=== PATIENT | male | born 2000 | race Caucasian/White ===

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

== ENCOUNTER 2019-02-18 23:25 | Emergency (ER) | payer BC ==
[~2019-02-18] VITALS: Ht 177.8 cm; Wt 113.4 kg
--- OUTSIDE RECORDS SUMMARY | ~2019-02-18 | XMS | Encounter Summary ---
Demographics + + + | Address | [address] | | | [place] [address] | + + + | Home Phone | | + + + | Preferred Language | Unknown | + + + | Marital Status | Single | + + + | Advent Affiliation | 1013 | + + + | Race | Unknown | + + + | Ethnic Group | Unknown | + + + Author + + + | Author | [facility] | | | and [place] | + + + | Organization | [facility] | | | and [place] | + + + | Address | Unknown | + + + | Phone | Unavailable | + + + Support + + +---------+ + | Name | Relationship | Address | Phone | + + +---------+ + | April De Dios | ECON | Unknown | | + + +---------+ + Care Team Providers + +------+ + | Care Credit Card Specialist Name | Role | Phone | + +------+ + PCP | Unavailable | + +------+ + Reason for Visit + + + | Reason | Comments | + + + | New Patient | Consultation for right hip | + + + Encounter Details +--------+---------+ + + + | Date | Type | Department | Care Team | Description | +--------+---------+ + + + | 01/21/ | Office | [facility] | Remi Vaughn, | Tear of right | | 2018 | Visit | [facility] | [address] | acetabular labrum, | | | | [address] | [address] | initial encounter | | | | [address] [place], [place] | [place] | (Primary Dx) | | | | [address] | [address] | | | | | [phone] | | | | | | | | +--------+---------+ + + + Social History + +-------+ +--------+------+ | Tobacco Use | Types | Packs/Day | Years | Date | | | | | Used | | + +-------+ +--------+------+ | Never Assessed | | | | | + +-------+ +--------+------+ + + +---------+ + | Alcohol Use | Drinks/Week | oz/Week | Comments | + + +---------+ + | No | | | | + + +---------+ + + + + | Sex Assigned at | Date Recorded | | | | + + + | Not on file | | + + + + + + + | Job Start Date | Occupation | Industry | + + + + | Not on file | Not on file | Not on file | + + + + + + + + | Travel History | Travel Start | Travel End | + + + + + + | No recent travel history available. | + + documented as of this encounter Last Filed Vital Signs + + + + + | Vital Sign | Reading | Time Taken | Comments | + + + + + | Blood Pressure | 142/88 | 01/21/2018 1:09 PM | | | | | PST | | + + + + + | Pulse | 79 | 01/21/2018 1:09 PM | | | | | PST | | + + + + + | Temperature | - | - | | + + + + + | Respiratory Rate | - | - | | + + + + + | Oxygen Saturation | - | - | | + + + + + | Inhaled Oxygen | - | - | | | Concentration | | | | + + + + + | Weight | 102.1 kg (225 lb) | 01/21/2018 1:09 PM | | | | | PST | | + + + + + | Height | 182.9 cm (6') | 01/21/2018 1:09 PM | | | | | PST | | + + + + + | Body Mass Index | 30.52 | 01/21/2018 1:09 PM | | | | | PST | | + + + + + documented in this encounter Progress Notes Remi Vaughn MD - 01/21/2018 1:15 PM PSTFormatting of this note might be different fro m the original. PATIENT NAME: Shawn De Dios : 2000 No care retail sales teammate to display SUBJECTIVE: Chief Complaint Patient presents with New Patient Consultation for right hip HPI: 17-year-old male seen for right hip injury. Occurred 2 months ago. [place] baseball game. [place] something jam or pop. Describes almost hyperextension of the hip. Had immediate numbness tingling spasm. Difficulty walking initially. With time this improved. However is having continued popping catching of the hip with certain activit ies. He shows me hyperflexion of the hip and rotation maneuvers. Pain is localized he poin ts anterior as well as lateral. No radicular pain no new numbness. No history of prior pro blems. No back issues. No bowel or bladder issues reported. There is no problem list on file for this patient. No past medical history on file. 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 No current facility-administered medications for this visit. ROS: Ortho Exam BP 142/88 | Pulse 79 | Ht 1.829 m (6') | Wt (!) 102.1 kg (225 lb) | BMI 30.52 kg/m In the standing position, no genu varum or valgum. No pes planus or cavus. Normal gait . Negative Trendelenburg. Able to create a pop or catch with external rotation abduction. Figure 4 as well. No pain with resisted hip flexion. Resisted abduction and and adduction normal. Leg length symmetric. No knee findings. Negative straight leg raise. Strength intact. XRAY STUDIES: 2 view right hip with normal bowel contour no evidence dysplasia. However on the lateral has a small bump. Nothing seen on acetabulum. No other findings seen. OUTSIDE STUDIES if relevant: ASSESSMENT: ICD-10-CM ICD-9-CM 1. Tear of right acetabular labrum, initial encounter S73.191A 843.8 PLAN: Concern for right hip labral tear. Given chronicity of his symptoms and failure of conse rvative therapy recommendation for contrast MRI to rule out labral tear. Other differential include snapping hip such as iliopsoas cyst tendinitis/bursitis. Active modification tempo rarily and recheck on MRIs done Requested Prescriptions No prescriptions requested or ordered in this encounter Electronically Signed: Remi Vaughn MD CC: No primary care provider on file. No referring provider defined for this encounter. Josselin Smith, CC [facility] - 01/21/2018 1:15 PM PSTSubjective Review of Systems Constitutional: Negative for chills, diaphoresis, fever, malaise/fatigue and weight loss. HENT: Positive for tinnitus. Negative for congestion, ear discharge, ear pain, hearing loss , nosebleeds, sinus pain and sore throat. Eyes: Positive for blurred vision and pain. Negative for double vision, photophobia, discha rge and redness. Respiratory: Positive for cough. Negative for hemoptysis, sputum production, shortness of b reath, wheezing and stridor. Cardiovascular: Positive for chest pain. Negative for palpitations, orthopnea, claudication , leg swelling and PND. Gastrointestinal: Positive for abdominal pain, diarrhea and vomiting. Negative for blood in stool, constipation, heartburn, melena and nausea. Genitourinary: Negative for dysuria, flank pain, frequency, hematuria and urgency. Musculoskeletal: Positive for back pain and joint pain. Negative for falls, myalgias and ne ck pain. Skin: Negative for itching and rash. Neurological: Positive for dizziness and headaches. Negative for tingling, tremors, sensory change, speech change, focal weakness, seizures, loss of consciousness and weakness. Endo/Heme/Allergies: Positive for environmental allergies. Negative for polydipsia. Does no t bruise/bleed easily. Psychiatric/Behavioral: Negative for depression, hallucinations, memory loss, substance abu se and suicidal ideas. The patient is nervous/anxious. The patient does not have insomnia. documented in t his encounter Plan of Treatment + +---------+--------+ + + | Name | Type | Priori | Associated Diagnoses | Order Schedule | | | | ty | | | + +---------+--------+ + + | XR Hip Left 2-3 | Imaging | Routin | Tear of right | Ordered: 01/21/2018 | | Views | | e | acetabular labrum, | | | | | | initial encounter | | + +---------+--------+ + + documented as of this encounter Visit Diagnoses + + | Diagnosis | + + | Tear of right acetabular labrum, initial encounter - Primary | + + documented in this encounter"
--- OUTSIDE RECORDS SUMMARY | ~2019-02-18 | XMS | Encounter Summary ---
Demographics + + + | Address | [address] | | | [place] [address] | + + + | Home Phone | | + + + | Preferred Language | Unknown | + + + | Marital Status | Single | + + + | Restoration Affiliation | 1013 | + + + | Race | Unknown | + + + | Ethnic Group | Unknown | + + + Author + + + | Author | [facility] | | | and [place] | + + + | Organization | [facility] | | | and [...] Team Providers + +------+ + | Care Inventory Taker Name | Role | Phone | + +------+ + PCP | Unavailable | + +------+ + Reason for Visit + + + | Reason | Comments | + + + | Request For Medical | | | Records | | + + + Encounter Details +--------+ + + + + | Date | Type | Department | Care Team | Description | +--------+ + + + + | 04/21/ | Telephone | [facility] | Remi Vaughn, | Request For Medical | | 2019 | | [facility] | [address] | Records | | | | [address] | [address] | | | | | [address] [place], [place] | [place], [place] | | | | | [address] | [address] | | | | | [phone] | | | | | | | | +--------+ + + + + Social History + +-------+ +--------+------+ | Tobacco Use | Types | Packs/Day | Years | Date | | | | | Used | | + +-------+ +--------+------+ | Never Smoker | | | | | + +-------+ +--------+------+ + +---+---+---+ | Smokeless Tobacco: | | | | | Never Used | | | | + +---+---+---+ + + +---------+ + | Alcohol Use [...] + + documented as of this encounter Plan of Treatment Not on filedocumented as of this encounter Visit Diagnoses Not on filedocumented in this encounter"
--- OUTSIDE RECORDS SUMMARY | ~2019-02-18 | XMS | Encounter Summary ---
Demographics + + + | Address | [address] | | | [place] [address] | + + + | Home Phone | | + + + | Preferred Language | Unknown | + + + | Marital Status | Single | + + + | Alevism Affiliation | 1013 | + + + | Race | Unknown | + + + | Ethnic Group | Unknown | + + + Author + + + | Author | [facility] | | | and [place] | + + + | Organization | [facility] | | [...] Team Providers + +------+ + | Care Rock Cutter Name | Role | Phone | + +------+ + | Daniel Owusu MD | PCP | Unavailable | + +------+ + Encounter Details +--------+ + + + + | Date | Type | Department | Care Team | Description | +--------+ + + + + | 10/11/ | Hospital [facility]leg[facility] | | | 2000 | Encounter | [facility] | MD Arleen [address] | | | | | [address] | | | | | [place] | [place] [address] | | | | | [address] | [phone] | | | | | [phone] | | | | | | | Physician, Er | | +--------+ + + + + Social History + +-------+ +--------+------+ | Tobacco Use | Types | Packs/Day | Years | Date | | | | | Used | | + +-------+ +--------+------+ | Never Assessed | | | | | + +-------+ +--------+------+ + + + | Sex Assigned at [...]
--- OUTSIDE RECORDS SUMMARY | ~2019-02-18 | XMS | Encounter Summary ---
Demographics + + + | Address | [address] | | | [place] [address] | + + + | Home Phone | | + + + | Preferred Language | Unknown | + + + | Marital Status | Single | + + + | Christian Affiliation | 1013 | + + + | Race | Unknown | + + + | Ethnic Group | Unknown | + + + Author + + + | Author | [facility] | | | and [place] | + + + | Organization | [facility] | | | and [...] Team Providers + +------+ + | Care Circular Sawyer Helper Name | Role | Phone | + [...] | | 2018 | Visit | [facility] | [address] | acetabular labrum, | | | | [address] | [address] | initial encounter | | | | [address] [place], [place] | [place] | (Primary Dx) | | | | [address] | [address] | | | | | [phone] | | | | | | | [...] Shawn De Dios : 2000 No care count team member to display SUBJECTIVE: Chief Complaint Patient presents with New Patient Consultation for right hip HPI: 17-year-old male seen for right hip injury. Occurred 2 months ago. [place] during baseball game. [place] something jam or pop. 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 Josselin Smith, CC [facility] - 01/21/2018 1:15 PM PSTSubjective Review [...]
--- OUTSIDE RECORDS SUMMARY | ~2019-02-18 | XMS | Clinical Summary ---
Demographics + + + | Address | [address] | | | [place] [address] | + + + | Home Phone | | + + + | Preferred Language | Unknown | + + + | Marital Status | Single | + + + | Faith Affiliation | 1013 | + + + | Race | Unknown | + + + | Ethnic Group | Unknown | + + + Author + + + | Author | [facility] | | | and [place] | + + + | Organization | [facility] | | | and [...] Team Providers + +------+ + | Care Locomotive Oiler Name | Role | Phone | + +------+ + PCP | Unavailable | + +------+ + Allergies No Known Allergies Medications No known medications Active Problems + + + | Problem | Noted Date | + + + | Hip impingement syndrome, right | 02/16/2018 | + + + Family History + + +------+ + | Medical History | Relation | Name | Comments | + + +------+ + | Alcohol abuse | Father | | | + + +------+ + | Hypertension | Father | | | + + +------+ + | Sleep apnea | Father | | | + + +------+ + + +------+--------+ + | Relation | Name | Status | Comments | + +------+--------+ + | Father | | | | + +------+--------+ + Social History + +-------+ +--------+------+ | [...] recent travel history available. | + + Last Filed Vital Signs + + + [...] Weight | 102.1 kg (225 lb) | 02/13/2018 1:56 PM | | | | | PST | | + + + + + | Height | 182.9 cm (6') | 02/13/2018 1:56 PM | | | | | PST | | + + + + + | Body Mass Index | 30.52 | 02/13/2018 1:56 PM | | | | | PST | | + + + + + Plan of Treatment + + + + + | Health Maintenance | Due Date | Last Done | Comments | + + + + + | Well Child Check | | | | | | 3 | | | + + + + + | Vaccine: Influenza | | 11/24/2013 | | | (#1) | 9 | | | + + + + + | Vaccine: | | 09/26/2010, 08/28/2004, | | | Dtap/Tdap/Td (7 - | 1 | 12/02/2000, Additional history | | | Td) | | exists | | + + + + + | Vaccine: HPV | Completed | 03/31/2014, 11/24/2013, | | | | | 08/25/2013 | | + + + + + Results Not on filefrom Last 3 Months Advance Directives + + + + + | Type | Date Recorded | Patient | Explanation | | | | Insulation And Flooring Assembler | | + + + + + | Power of | | | | | Sap Pi Developer | | | | + + + + + | Advance | | | | | Directive | | | | + + + + +"
--- OUTSIDE RECORDS SUMMARY | ~2019-02-18 | XMS | Encounter Summary ---
Demographics + + + | Address | [address] | | | [place] [address] | + + + | Home Phone | | + + + | Preferred Language | Unknown | + + + | Marital Status | Single | + + + | Worship Affiliation | 1013 | + + + | Race | Unknown | + + + | Ethnic Group | Unknown | + + + Author + + + | Author | [facility] | | | and [place] | + + + | Organization | [facility] | | | [...] Team Providers + +------+ + | Care Music Professor Name | Role | Phone | + +------+ + PCP | Unavailable | + +------+ + Encounter Details +--------+ + + + + | Date | Type | Department | Care Team | Description | +--------+ + + + + | 07/15/ | Hospital [facility] | To Hemphill MD | | | 2000 | Encounter | [facility] | | | | | | GENERIC [address] | | | | | | [place], | | | | | | [place] [address] | | | | | | [phone] | | | +--------+ + + + [...]
--- OUTSIDE RECORDS SUMMARY | ~2019-02-18 | XMS | Encounter Summary ---
Demographics + + + | Address | [address] | | | [place] [address] | + + + | Home Phone | | + + + | Preferred Language | Unknown | + + + | Marital Status | Single | + + + | Sabianist Affiliation | 1013 | + + + | Race | Unknown | + + + | Ethnic Group | Unknown | + + + Author + + + | Author | [facility] | | | and [place] | + + + | Organization | [facility] | | | and [...] Team Providers + +------+ + | Care Shipper/Receiver Name | Role | Phone | + +------+ + PCP | Unavailable | + +------+ + Reason for Visit +--------+ + | Reason | Comments | +--------+ + | Letter | | +--------+ + Encounter Details +--------+ + + + + | Date | Type | Department | Care Team | Description | +--------+ + + + + | 02/23/ | Telephone | [facility] | Remi Vaughn, | Letter | | 2019 | | [facility] | [address] | | | | | [place] [address] | [address] | | | | | [address] | [place] | | | | | [address] [place], [place] | [address] | | | | | [address] | [phone] | | | | | [phone] | | | +--------+ + + + [...]
--- OUTSIDE RECORDS SUMMARY | ~2019-02-18 | XMS | Clinical Summary ---
Demographics + + + | Address | [address] | | | [place] [address] | + + + | Home Phone | | + + + | Preferred Language | Unknown | + + + | Marital Status | Single | + + + | Nondenominational Affiliation | 1013 | + + + | Race | Unknown | + + + | Ethnic Group | Unknown | + + + Author + + + | Author | [facility] | | | and [place] | + + + | Organization | [facility] | | | [...] Team Providers + +------+ + | Care Station Captain Name | Role | Phone | + [...] Patient | Explanation | | | | Hydraulics Teacher | | + + + + + | Power of | | | | | Supervisor Accounts Receivable | | | | + + + + + | Advance | | | | | Directive | | | | + + + + +"
--- OUTSIDE RECORDS SUMMARY | ~2019-02-18 | XMS | Encounter Summary ---
Demographics + + + | Address | [address] | | | [place] [address] | + + + | Home Phone | | + + + | Preferred Language | Unknown | + + + | Marital Status | Single | + + + | Evangelical Affiliation | 1013 | + + + | Race | Unknown | + + + | Ethnic Group | Unknown | + + + Author + + + | Author | [facility] | | | and [place] | + + + | Organization | [facility] | | [...] Team Providers + +------+ + | Care Glassware Verifier Name | Role | Phone | + [...] | 2019 | | [facility] | [address] | Records | | | | [address] | [address] | | | | | [address] [place], [place] | [place], [place] | | | | | [address] | [address] | | | | | [phone] | | | | | | | [...]
--- OUTSIDE RECORDS SUMMARY | ~2019-02-18 | XMS | Encounter Summary ---
Demographics + + + | Address | [address] | | | [place] [address] | + + + | Home Phone | | + + + | Preferred Language | Unknown | + + + | Marital Status | Single | + + + | Nondenominational Affiliation | 1013 | + + + | Race | Unknown | + + + | Ethnic Group | Unknown | + + + Author + + + | Author | [facility] | | | and [place] | + + + | Organization | [facility] | | | [...] Team Providers + +------+ + | Care Vice President Planning Name | Role | Phone | + +------+ + PCP | Unavailable | + +------+ + Reason for Referral Diagnostic/Screening (Routine) +--------+--------+ + + + + | Status | Reason | Specialty | Diagnoses / | Referred By | Referred To | | | | | Procedures | Contact | Contact | +--------+--------+ + + + + | Closed | | | Diagnoses | Vaughn, | [facility] | | | | | Tear of | Remi Bertrand MD | [facility] | | | | | right | [address] | [address] | | | | | acetabular | [address] | [address] | | | | | labrum, | [address] | [place] | | | | | initial | [place] | Phone: | | | | | encounter | [address] | [phone] | | | | | Procedures | Phone: | Fax: | | | | | MRI Hip | [phone] | [phone] | | | | | Right | Fax: | | | | | | Arthrogram w | [phone] | | | | | | Contrast | | | +--------+--------+ + + + + Encounter Details +--------+ + + + + | Date | Type | Department | Care Team | Description | +--------+ + + + + | 01/21/ | Orders Only | [facility] | Remi Vaughn, | Tear of right | | 2018 | | [facility] | [address] | acetabular labrum, | | | | [address] | [address] | initial encounter | | | | [address] [place], [place] | [place] | (Primary Dx) | | | | [address] | [address] | | | | | [phone] | | | | | | | [...] as of this encounter Plan of Treatment + +---------+--------+ + + | Name | Type | Priori | Associated Diagnoses | Order Schedule | | | | ty | | | + +---------+--------+ + + | MRI Hip Right | Imaging | Routin | Tear of right | Expected: | | Arthrogram w | | e | acetabular labrum, | 01/21/2018, Expires: | | Contrast | | | initial encounter | 01/21/2019 | + +---------+--------+ + + documented as of this encounter Visit Diagnoses + + | Diagnosis | + + | Tear of right acetabular labrum, initial encounter - Primary | + + documented in this encounter"
--- OUTSIDE RECORDS SUMMARY | ~2019-02-18 | XMS | Encounter Summary ---
Demographics + + + | Address | [address] | | | [place] [address] | + + + | Home Phone | | + + + | Preferred Language | Unknown | + + + | Marital Status | Single | + + + | Confucianism Affiliation | 1013 | + + + | Race | Unknown | + + + | Ethnic Group | Unknown | + + + Author + + + | Author | [facility] | | | and [place] | + + + | Organization | [facility] | | | and [...] Team Providers + +------+ + | Care Accounting System Expert Name | Role | Phone | + +------+ + PCP | Unavailable | + +------+ + Reason for Visit + + + | Reason | Comments | + + + | Hip Pain | | + + + Encounter Details +--------+ + + + + | Date | Type | Department | Care Team | Description | +--------+ + + + + | 04/14/ | Telephone | [facility] | Remi Vaughn, | Hip Pain | | 2019 | | [facility] | [address] | | | | | [place] [address] | [address] | | | | | [address] | [place] | | | | | [address] [place] | [address] | | | | | [address] | [phone] | | | | | [phone] | | | +--------+ + + + [...]
--- OUTSIDE RECORDS SUMMARY | ~2019-02-18 | XMS | Encounter Summary ---
Demographics + + + | Address | [address] | | | [place] [address] | + + + | Home Phone | | + + + | Preferred Language | Unknown | + + + | Marital Status | Single | + + + | Hindu Affiliation | 1013 | + + + | Race | Unknown | + + + | Ethnic Group | Unknown | + + + Author + + + | Author | [facility] | | | and [place] | + + + | Organization | [facility] | | | [...] Team Providers + +------+ + | Care Surveyor Rod Helper Name | Role | Phone | + +------+ + PCP | Unavailable | + +------+ + Encounter Details +--------+ + + + + | Date | Type | Department | Care Team | Description | +--------+ + + + + | 02/05/ | Clinical | [facility] | Sourav Hagen MD | Right hip pain | | 2018 | Support | ORTHOPEDICS | [address] | | | | | [place] [address] | [address] [place], | | | | | [address] [place] | [place] [address] | | | | | [address] [place] | [phone] | | | | | [address] | | | | | | [phone] | | | +--------+ + + + [...] + + documented as of this encounter Progress Notes Sourav Hagen MD - 02/05/2018 10:15 AM PST PATIENT NAME: Shawn Mansfieldvan : 2000 PATIENT CARE TEAM: No care water team leader to display PROCEDURE: SPECIAL PROCEDURE: Hip arthrogram: Right side. HISTORY/INDICATION: Hip pain. Assess for hip pathology TECHNIQUE: The procedure and possible complications were to the patient prior to the proced ure and written informed consent obtained. Complications include bleeding, infection, nerve damage and allergic reactions to the injected medications. The area was prepped and draped i n the usual sterile fashion. Then 1% lidocaine was used to anesthetize the skin and subcutan eous tissues. The patient was placed supine on the fluoroscopy table. Using fluoroscopic guidance, the en try sites on the skin anterior to the left hip was determined. A 22-gauge 3.5 inch Quincke tip spinal needle was inserted percutaneously and guided toward the joint space of the hip aiming toward the superior portion of the intersection of the fe moral head and neck region. After satisfactory position, Omnipaque contrast was then injecte d to confirm appropriate flow into the joint space and nonvascular flow. Following this, 3cc Omnipaque, 10cc of 0.2% ropivicaine, and 10cc normal saline was then injected. Fluoroscopy time: 3 seconds ARTHROGRAM INTERPRETATION: There was Omnipaque contrast seen flowing into the boundary of t he joint capsule and superiorly into the femoroacetabular joint space. The patient was then sent to the MRI scanner for further imaging (see report) documented in this encou nter Plan of Treatment Not on filedocumented as of this encounter Visit Diagnoses + + | Diagnosis | + + | Right hip pain Pain in joint, pelvic region and thigh | + + documented in this encounter"
--- OUTSIDE RECORDS SUMMARY | ~2019-02-18 | XMS | Encounter Summary ---
Demographics + + + | Address | [address] | | | [place] [address] | + + + | Home Phone | | + + + | Preferred Language | Unknown | + + + | Marital Status | Single | + + + | Moravian Affiliation | 1013 | + + + | Race | Unknown | + + + | Ethnic Group | Unknown | + + + Author + + + | Author | [facility] | | | and [place] | + + + | Organization | [facility] | | | and [...] Team Providers + +------+ + | Care Quill Picking Machine Operator Name | Role | Phone | + [...] | | [place] | [place] [address] | | | | | [address] | [phone] | | | | | [phone] | | | | | | | [...]
--- OUTSIDE RECORDS SUMMARY | ~2019-02-18 | XMS | Encounter Summary ---
Demographics + + + | Address | [address] | | | [place] [address] | + + + | Home Phone | | + + + | Preferred Language | Unknown | + + + | Marital Status | Single | + + + | Yazidism Affiliation | 1013 | + + + | Race | Unknown | + + + | Ethnic Group | Unknown | + + + Author + + + | Author | [facility] | | | and [place] | + + + | Organization | [facility] | | | and [...] Team Providers + +------+ + | Care Buyer Tobacco Head Name | Role | Phone | + [...] | | 2019 | | ORTHOPEDICS | [address] | | | | | [place] [address] | [address] | | | | | [address] [place] | [place] | | | | | [address] [place], [place] | [address] | | | | | [address] | [phone] | | | | | [phone] | | | +--------+ + + + [...]
--- OUTSIDE RECORDS SUMMARY | ~2019-02-18 | XMS | Encounter Summary ---
Demographics + + + | Address | [address] | | | [place] [address] | + + + | Home Phone | | + + + | Preferred Language | Unknown | + + + | Marital Status | Single | + + + | Sikhism Affiliation | 1013 | + + + | Race | Unknown | + + + | Ethnic Group | Unknown | + + + Author + + + | Author | [facility] | | | and [place] | + + + | Organization | [facility] | | | [...] Team Providers + +------+ + | Care Hooker Laster Name | Role | Phone | + +------+ + PCP | Unavailable | + +------+ + Encounter Details +--------+ + + + + | Date | Type | Department | Care Team | Description | +--------+ + + + + | 07/15/ | Hospital | [facility] | To Hemphill MD | | | 2000 | Encounter | [facility] | | | | | | GENERIC [address] | | | | | | [place], | | | | | | [place] [address] | | | | | | [phone] | | | +--------+ + + + [...]
--- OUTSIDE RECORDS SUMMARY | ~2019-02-18 | XMS | Encounter Summary ---
Demographics + + + | Address | [address] | | | [place] [address] | + + + | Home Phone | | + + + | Preferred Language | Unknown | + + + | Marital Status | Single | + + + | Taoist Affiliation | 1013 | + + + | Race | Unknown | + + + | Ethnic Group | Unknown | + + + Author + + + | Author | [facility] | | | and [place] | + + + | Organization | [facility] | | | and [place] | + [...] Team Providers + +------+ + | Care Hide Dropper Name | Role | Phone | + [...] | | 2019 | | ORTHOPEDICS | [address] | | | | | [place] [address] | [address] | | | | | [address] [place] | [place] | | | | | [address] [place] | [address] | | | | | [address] | [phone] | | | | | [phone] | | | +--------+ + + + [...]
--- OUTSIDE RECORDS SUMMARY | ~2019-02-18 | XMS | Encounter Summary ---
Demographics + + + | Address | [address] | | | [place] [address] | + + + | Home Phone | | + + + | Preferred Language | Unknown | + + + | Marital Status | Single | + + + | Pentecostal Affiliation | 1013 | + + + | Race | Unknown | + + + | Ethnic Group | Unknown | + + + Author + + + | Author | [facility] | | | and [place] | + + + | Organization | [facility] | | [...] Team Providers + +------+ + | Care Shearing Shed Worker Name | Role | Phone | + +------+ + PCP | Unavailable | + +------+ + Reason for Referral Evaluate & Treat (Routine) +--------+ + + + + + | Status | Reason | Specialty | Diagnoses / | Referred By | Referred To | | | | | Procedures | Contact | Contact | +--------+ + + + + + | Closed | Second | Sports | Diagnoses | Roderick, | Jamil, | | | Opinion | Medicine | Right hip | Remi Bertrand MD | Chirag | | | | | pain | [address] | | | | | | [address] | [address] | | | | | | [address] | [address] | | | | | | [place] | [place], | | | | | | [address] | [place] [address] | | | | | | Phone: | Phone: | | | | | | [phone] | [phone] | | | | | | Fax: | Fax: | | | | | | [phone] | [phone] | +--------+ + + + + + Evaluate & Treat (Routine) +--------+ + + + + + | Status | Reason | Specialty | Diagnoses / | Referred By | Referred To | | | | | Procedures | Contact | Contact | +--------+ + + + + + | Closed | Specialty | Physical | Diagnoses | Roderick, | | | | Services | Therapy | Right hip | Remi Bertrand MD | | | | Required | | pain | [address] | | | | | | | [address] [place] | | | | | | | [address] | | | | | | | [place] | | | | | | | [address] | | | | | | | Phone: | | | | | | | [phone] | | | | | | | Fax: | | | | | | | [phone] | | +--------+ + + + + + Reason for Visit + + + | Reason | Comments | + + + | Results, Imaging | MRI review left hip | + + + Encounter Details +--------+---------+ + + + | Date | Type | Department | Care Team | Description | +--------+---------+ + + + | 02/13/ | Office | [facility] | Remi Vaughn, | Right hip pain | | 2019 | Visit | ORTHOPEDICS | [address] | (Primary Dx); Hip | | | | [place] [address] | [address] | impingement | | | | [address] [place] | [place] | syndrome, right | | | | [address] [place] | [address] | | | | | [address] | [phone] | | | | | [phone] | | | +--------+---------+ + + + [...] + + + | Blood Pressure | - | - | | + + + + + | Pulse | - | - | | + [...] encounter Progress Notes Remi Vaughn MD - 02/13/2018 1:15 PM PSTFormatting of this note might be different fro shayna the original. PATIENT NAME: Shawn De Dios : 2000 No care outreach team member to display SUBJECTIVE: Chief Complaint Patient presents with Results, Imaging MRI review left hip HPI: Follow-up right hip here for MRI review. From a symptom standpoint nothing is nazario ed. There is no problem list on file for this patient. History reviewed. No pertinent past medical history. 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 No current facility-administered medications for this visit. ROS: Review of Systems Constitutional: Negative for chills, [...] nervous/anxious. The patient does not have insomnia. Ortho Exam Ht 1.829 m (6') | Wt (!) 102.1 kg (225 lb) | BMI 30.52 kg/m No examination today. XRAY STUDIES: No results found. OUTSIDE STUDIES if relevant: Edema seen around both iliopsoas cyst tendons. Minimal. Does have lateral osseous bump on the femoral head. Alpha angle 57 degrees. Center edge angle 34 degrees. No distinct la bral tear seen. ASSESSMENT: ICD-10-CM ICD-9-CM 1. Right hip pain M25.551 719.45 [facility] Referral to Physical Therapy [facility]B RE[facility]ERRAL [facility] 2. Hip impingement syndrome, right M25.851 726.5 PLAN: Discussed treatment options going forward. Likely has component of impingement. Referri ng to Dr. Arsh Negron for evaluation and treatment. 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 Have him focus on hip flexor stretching a nd strengthening as does have inflammation noted near both hip flexors. Requested Prescriptions No prescriptions requested or ordered in this encounter Electronically Signed: Remi Vaughn MD CC: No primary care provider on file. No referring provider defined for this encounter. Josselin Smith, [facility] - 02/13/2018 1:15 PM PSTSubjective Review of Systems Constitutional: [...] t his encounter Plan of Treatment + + +--------+ + + | Name | Type | Priori | Associated Diagnoses | Order Schedule | | | | ty | | | + + +--------+ + + | [facility] Referral to | Outpatient | Routin | Right hip pain | Ordered: 02/13/2018 | | Physical Therapy | Referral | e | | | + + +--------+ + + | AMB REFERRAL TO | Outpatient | Routin | Right hip pain | Ordered: 02/13/2018 | | [facility] | Referral | e | | | + + +--------+ + + documented as of this encounter Visit Diagnoses + + | Diagnosis | + + | Right hip pain - Primary Pain in joint, pelvic region and thigh | + + | Hip impingement syndrome, right | + + documented in this encounter"
--- OUTSIDE RECORDS SUMMARY | ~2019-02-18 | XMS | Encounter Summary ---
Demographics + + + | Address | [address] | | | [place] [address] | + + + | Home Phone | | + + + | Preferred Language | Unknown | + + + | Marital Status | Single | + + + | Roman Catholic Affiliation | 1013 | + + + | Race | Unknown | + + + | Ethnic Group | Unknown | + + + Author + + + | Author | [facility] | | | and [place] | + + + | Organization | [facility] | | | [...] Team Providers + +------+ + | Care Pawn Broker Name | Role | Phone | + [...] | | | | | pain | [address] | | | | | | [address] | [address] | | | | | | [address] | [address] | | | | | | [place] | [place], | | | | | | [address] | [place] [address] | | | | | | Phone: | Phone: | | | | | | [phone] | [phone] | | | | | | Fax: | Fax: | | | | | | [phone] | [phone] | +--------+ + + + + + [...] | | Required | | pain | [address] | | | | | | | [address] | | | | | | | [address] | | | | | | | [place] | | | | | | | [address] | | | | | | | Phone: | | | | | | | [phone] | | | | | | | Fax: | | | | | | | [phone] | | +--------+ + + + + [...] | 2019 | Visit | ORTHOPEDICS | [address] | (Primary Dx); Hip | | | | [place] [address] | [address] | impingement | | | | [address] [place] | [place] | syndrome, right | | | | [address] [place] | [address] | | | | | [address] | [phone] | | | | | [phone] | | | +--------+---------+ + + + [...] Shawn De Dios : 2000 No care trampoline team coach to display SUBJECTIVE: Chief Complaint Patient presents [...] Years of education: N/A 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 Josselin Smith, [facility] - 02/13/2018 1:15 PM PSTSubjective Review of [...]
--- OUTSIDE RECORDS SUMMARY | ~2019-02-18 | XMS | Encounter Summary ---
Demographics + + + | Address | [address] | | | [place] [address] | + + + | Home Phone | | + + + | Preferred Language | Unknown | + + + | Marital Status | Single | + + + | Anabaptist Affiliation | 1013 | + + + | Race | Unknown | + + + | Ethnic Group | Unknown | + + + Author + + + | Author | [facility] | | | and [place] | + + + | Organization | [facility] [...] Team Providers + +------+ + | Care Servomechanism Assembler Name | Role | Phone | + +------+ + PCP | Unavailable | + +------+ + Encounter Details +--------+ + + + + | Date | Type | Department | Care Team | Description | +--------+ + + + + | 02/05/ | Clinical | [facility] | Sourav Hagen MD | Right hip pain | | 2018 | Support | ORTHOPEDICS | [address] | | | | | [place] [address] | [address] [place], | | | | | [address] [place] | [place] [address] | | | | | [address] [place] | [phone] | | | | | [address] | | | | | | [phone] | | | +--------+ + + + [...] : 2000 PATIENT CARE TEAM: No care steam pressure chamber operator to display PROCEDURE: SPECIAL PROCEDURE: Hip arthrogram: [...]
--- OUTSIDE RECORDS SUMMARY | ~2019-02-18 | XMS | Encounter Summary ---
Demographics + + + | Address | [address] | | | [place] [address] | + + + | Home Phone | | + + + | Preferred Language | Unknown | + + + | Marital Status | Single | + + + | Buddhist Affiliation | 1013 | + + + | Race | Unknown | + + + | Ethnic Group | Unknown | + + + Author + + + | Author | [facility] | | | and [place] | + + + | Organization | [facility] | | | [...] Team Providers + +------+ + | Care Diesel Service Journeyman Name | Role | Phone | + [...] | | | | | right | [address] | [address] | | | | | acetabular | [address] [place] | [address] | | | | | labrum, | [address] | [place] | | | | | initial | [place] | Phone: | | | | | encounter | [address] | [phone] | | | | | Procedures | Phone: | Fax: | | | | | MRI Hip | [phone] | [phone] | | | | | Right | Fax: | | | | | | Arthrogram w | [phone] | | | | | | Contrast | | | +--------+--------+ + + + + Encounter Details +--------+ + + + + | Date | Type | Department | Care Team | Description | +--------+ + + + + | 01/21/ | Orders Only | [facility] | Remi Vaughn, | Tear of right | | 2018 | | ORTHOPEDICS [place] | [address] | acetabular labrum, | | | | [address] [place] | [place] | initial encounter | | | | [address], [place] | [place] | (Primary Dx) | | | | [address] | [address] | | | | | [phone] | [phone] | | | | | | | [...]
[2019-02-18] MEDS ORDERED: TIROSINT75 MCG PO (23:45)
[2019-02-18] MEDS ORDERED: VENLAFAXINE HC100 MG PO (23:46)
--- NOTE | 2019-02-19 07:36 | EKG ---
[facility] [address] [facility] [place] [address] Signed Normal sinus rhythm with sinus arrhythmia Possible Left atrial enlargement Borderline ECG No previous ECGs available Confirmed by SINGH MALAVE MD ([id number]) on 02/19/2019 7:36:41 AM Electronically Signed By: SINGH MALAVE MD 02/19/19 0736 PATIENT NAME: KOSTAS GARCIA Electrocardiogram DATE OF : [birth year] PHYSICIAN: SINGH MALAVE MD REPORT #: [id number] REPORT IS CONFIDENTIAL AND NOT TO BE RELEASED WITHOUT AUTHORIZATION
== END 2019-02-19 00:33 | disposition home or self-care (01) ==
LOC: ED 23:25
DX: R00.2 Palpitations (principal); I10 Essential (primary) hypertension; F41.9 Anxiety disorder, unspecified; Z79.899 Other long term (current) drug therapy
CPT/HCPCS: 71045; 93005; 93010; 99285-25

== ENCOUNTER 2019-03-18 01:03 | Emergency (ER) | payer BC ==
[~2019-03-18] VITALS: Ht 182.9 cm; Wt 113.4 kg
[~2019-03-18 01:03] MED LIST: TIROSINT75 MCG PO; VENLAFAXINE HC100 MG PO
--- OUTSIDE RECORDS SUMMARY | 2019-03-18 01:06 | XMS ---
PreManage Notification: KOSTAS GARCIA Security Core Carrier Events No recent Security Events currently on file CRITERIA MET - History of Sepsis Dx - [facility] - 2 Visits in 30 Days CARE PROVIDERS LACEY CHAVIRA Student in an Organized Health Care Current Education/Training Program PHONE: [phone] JAREN MELGAR Primary Care Current PHONE: [phone] Kerrie has no Care Guidelines for this patient. E.DLidia VISIT COUNT (12 MO.) 2 [facility] TOTAL 2 NOTE: Visits indicate total known visits. ED/UCC VISIT TRACKING (12 MO.) 03/18/2019 01:04 [facility] [place] TYPE: Emergency COMPLAINT: - CHEST PAIN 02/18/2019 23:25 [facility] [place] TYPE: Emergency COMPLAINT: - CHEST PAIN/RAPID HEART RATE/SOB DIAGNOSES: - Essential (primary) hypertension - Other skilled nursing (current) drug therapy - Palpitations - Anxiety disorder, unspecified INPATIENT VISIT TRACKING (12 MO.) No inpatient visits to display in this time frame [email or web address]
[2019-03-18] MEDS ORDERED: METOPROLOL SUCC25 MG PO (01:20)
--- NOTE | 2019-03-18 07:47 | EKG ---
[facility] [address] [facility] [place], [place] [address] Signed Normal sinus rhythm Normal ECG When compared with ECG of 18-FEB-2019 23:29, No significant change was found Confirmed by SINGH MALAVE MD ([id number]) on 03/18/2019 7:47:22 AM Electronically Signed By: SINGH MALAVE MD 03/18/19 0747 PATIENT NAME: KOSTAS GARCIA SHAY Electrocardiogram DATE OF : [birth year] PHYSICIAN: SINGH MALAVE MD REPORT #: [id number] REPORT IS CONFIDENTIAL AND NOT TO BE RELEASED WITHOUT AUTHORIZATION
== END 2019-03-18 01:31 | disposition home or self-care (01) ==
LOC: ED 01:03
DX: F45.8 Other somatoform disorders (principal); I10 Essential (primary) hypertension; F41.9 Anxiety disorder, unspecified; Z79.899 Other long term (current) drug therapy
CPT/HCPCS: 93005; 93010; 99284-25

== ENCOUNTER 2020-03-16 17:35 | Emergency (ER) | payer BC ==
[~2020-03-16 17:35] MED LIST changes: +METOPROLOL SUCC25 MG PO
--- OUTSIDE RECORDS SUMMARY | 2020-03-16 17:38 | XMS ---
PreManage Notification: KOSTAS GARCIA Security Business Risk Analyst Events No recent Security Events currently on file CRITERIA MET - History of Sepsis Dx CARE PROVIDERS LACEY CHAVIRA Student in an Organized Health Care Current Education/Training Program PHONE: [phone] Alvin Blanchard [facility] Current PHONE: [phone] Kerrie has no Care Guidelines for this patient. E.Zoë VISIT COUNT (12 MO.) 1 [facility] TOTAL 3 NOTE: Visits indicate total known visits. ED/UCC VISIT TRACKING (12 MO.) 03/16/2020 17:36 [facility] TYPE: Emergency COMPLAINT: - SYNCOPE, SOB, RAPID HEART BEAT, NUMBNESS UPPER EXT 10/27/2019 17:20 [facility] TYPE: Emergency COMPLAINT: - Lower Back Px DIAGNOSES: 1. Low back pain 03/18/2019 01:04 [facility] [place] TYPE: Emergency COMPLAINT: - CHEST PAIN DIAGNOSES: - Other somatoform disorders - Essential (primary) hypertension - Anxiety disorder, unspecified - Other exterminator helper termite (current) drug therapy INPATIENT VISIT TRACKING (12 MO.) No inpatient visits to display in this time frame [email or web address]
--- NOTE | 2020-03-16 21:40 | EKG ---
[facility] [address] [facility] [place] [address] Signed Normal sinus rhythm with sinus arrhythmia Normal ECG When compared with ECG of 18-MAR-2019 01:09, Nonspecific T wave abnormality no longer evident in Lateral leads Confirmed by SINGH MALAVE MD ([id number]) on 03/16/2020 9:40:18 PM Electronically Signed By: SINGH MALAVE MD 03/16/20 2140 PATIENT NAME: GARCIAKOSTAS Electrocardiogram DATE OF : [birth year] PHYSICIAN: SIGNH MALAVE MD REPORT #: [id number] REPORT IS CONFIDENTIAL AND NOT TO BE RELEASED WITHOUT AUTHORIZATION
== END 2020-03-16 18:59 | disposition home or self-care (01) ==
LOC: ED 17:35
DX: I47.1 Supraventricular tachycardia (principal); I10 Essential (primary) hypertension
CPT/HCPCS: 93005; 93010; 99284-25